=== PATIENT | male | born 1990 | race Caucasian/White ===

== ENCOUNTER 2016-11-11 20:35 | Emergency (ER) | payer OTHER ==
[2016-11-11 22:39] LABS: HEMOGLOBIN 15.9 gm/dl (14.0-17.5); RED BLOOD COUNT 5.55 M/UL (4.20-5.50); WHITE BLOOD COUNT 14.1 K/UL (4.5-11.0)
[2016-11-11 23:00] LABS: BUN/CREATININE RATIO 13 (0-10)
== END 2016-11-12 01:00 | disposition home or self-care (01) ==
LOC: ER1 20:35
PROVIDERS: Preventive Medicine Occupational Medicine
DX: A08.4 Viral intestinal infection, unspecified (principal); Z87.891 Personal history of nicotine dependence
CPT/HCPCS: 36415; 74022; 80053; 80307; 81001; 83690; 85025; 86140; 96374; 96375; 99284; C9113; J2405; J7030; J7050; Q9962

== ENCOUNTER 2021-04-14 10:13 | Emergency (ER) | payer BC ==
[2021-04-14 13:26] LABS: BORDETELLA PARAPERTUSSIS Not Detected (Not Detectd); BORDETELLA PERTUSSIS Not Detected (Not Detectd); CHLAMYDIA PNEUMONIAE Not Detected (Not Detectd); CORONAVIRUS HKU1 Not Detected (Not Detectd); CORONAVIRUS NL63 Not Detected (Not Detectd); CORONAVIRUS OC43 Not Detected (Not Detectd); CORONOAVIRUS 229E Not Detected (Not Detectd); HUMAN METAPNEUMOVIRUS Not Detected (Not Detectd); HUMAN RHINOVIRUS/ENTEROVIRUS Not Detected (Not Detectd); INFLUENZA A Not Detected (Not Detectd); INFLUENZA B Not Detected (Not Detectd); MYCOPLASMA PNEUMONIAE Not Detected (Not Detectd); PARAINFLUENZA VIRUS 1 Not Detected (Not Detectd); PARAINFLUENZA VIRUS 2 Not Detected (Not Detectd); PARAINFLUENZA VIRUS 3 Not Detected (Not Detectd); PARAINFLUENZA VIRUS 4 Not Detected (Not Detectd); RESPIRATORY SYNCYTIAL VIRUS Not Detected (Not Detectd)
[2021-04-14 13:27] LABS: RED BLOOD COUNT 5.23 M/UL (4.20-5.50); WHITE BLOOD COUNT 12.9 K/UL (4.5-11.0)
[2021-04-14 14:23] LABS: SARS-CoV-2 NOT DETECTED (Not Detectd)
[2021-04-14 15:18] LABS: BUN/CREATININE RATIO 12 (0-10)
[2021-04-14] MEDS ORDERED: DOXYCYCLINE MO100 MG PO (15:42)
[2021-04-14] MEDS ORDERED: ZOFRAN4 MG PO (15:42)
== END 2021-04-14 16:32 | disposition home or self-care (01) ==
LOC: ER1 10:13
PROVIDERS: Nurse Practitioner
DX: J18.8 Other pneumonia, unspecified organism (principal); R51.9 Headache, unspecified; I10 Essential (primary) hypertension; Z20.822 Contact with and (suspected) exposure to COVID-19
CPT/HCPCS: 70450; 71045; 80053; 82550; 82553; 83605; 83874; 84484; 85025; 87633; 93005; 96374; 96375; 99285; J0780; J1100; J1200; J1885; J2405